=== PATIENT | female | born 1970 | race Hispanic/Latino ===

== ENCOUNTER 2017-09-15 08:50 | Day surgery (SDC) | payer BC ==
[~2017-09-15 08:50] MED LIST: OMNIPAQUE 300 MG/50 ML (CATH LAB) IV ONE; WATER FOR IRRIG STERILE IR ONE
--- NOTE | 2017-09-15 10:16 | Anesthesia Day of Surgery ---
Anesthesia Day of Surgery - Day of Surgery Patient Examined: Yes Patient H&P Reviewed: Yes Patient is NPO: Yes
--- NOTE | 2017-09-15 10:16 | Anesthesia Consultation ---
Anesthesia Consult and Med Hx Date of service: 09/15/17 - Airway Anesthetic Teeth Evaluation: Good ROM Head & Neck: Adequate Mental/Hyoid Distance: Adequate Mallampati Class: Class II Intubation Access Assessment: Probably Good - Pulmonary Exam CTA: Yes - Cardiac Exam Cardiac Exam: RRR - Pre-Operative Health Status ASA Pre-Surgery Classification: ASA2 Proposed Anesthetic Plan: General - Pulmonary Hx Smoking: No Hx Asthma: Yes (rare inhaler use) Hx Sleep Apnea: No (TAB PRE SCREEN NEGATIVE) - Cardiovascular System Hx Hypertension: No - Central Nervous System Hx Back Pain: Yes (FROM STONE) - Gastrointestinal Hx Gastroesophageal Reflux Disease: No (Some recent nausea) - Other Systems Hx Cancer: No - Additional Comments Anesthesia Medical History Comments: H/O PONV
[2017-09-15] MEDS ORDERED: ZOFRAN IV PRN (10:17)
[2017-09-15] MEDS ORDERED: DILAUDID IV NR (10:18)
[2017-09-15] MEDS ORDERED: XYLOCAINE MPF 2% ONE (10:30)
[2017-09-15] MEDS: LACTATED RINGERS 1,000 ML IV SCH ×2 (10:33→12:30)
[2017-09-15] MEDS ORDERED: VERSED IV NR (11:00)
[2017-09-15] MEDS ORDERED: PEPCID IV NR (11:00)
[2017-09-15] MEDS ORDERED: TRANSDERM-SCOP TD NR (11:00)
[2017-09-15] MEDS ORDERED: ZOFRAN IV NR (11:00)
[2017-09-15] MEDS ORDERED: ANCEF/STERILE WATER 2 GM/20 ML IV NR (12:00)
[2017-09-15] MEDS ORDERED: DIPRIVAN 10 MG/ML IV ONE (15:03)
[2017-09-15] MEDS ORDERED: SUBLIMAZE ONE (15:03)
[2017-09-15] MEDS ORDERED: DECADRON ONE (15:44)
[2017-09-15] MEDS ORDERED: ZOFRAN ONE (15:44)
--- NOTE | 2017-09-15 16:16 | Short Stay Summary ---
Short Stay Documentation Date of service: 09/15/17 - History H&P: obtained from office - Allergies and Medications Current Medications: Allergies Sulfa (Sulfonamide Antibiotics) Allergy (Verified 09/15/17 10:09) hives and wheezing codeine Adverse Reaction (Verified 09/15/17 10:09) Vomiting hydrocodone Adverse Reaction (Verified 09/15/17 10:09) Vomiting oxycodone Adverse Reaction (Verified 09/15/17 10:09) Vomiting Home Medications Medication Instructions Recorded Confirmed Last Taken Type Cefuroxime [Ceftin] 500 mg PO Q12H 09/13/17 09/15/17 09/14/17 19:00 History Cetirizine HCl [ZyrTEC] 10 mg PO DAILY 09/13/17 09/15/17 09/15/17 06:45 History HYDROmorphone [Dilaudid] 2 mg PO Q6HR PRN 09/13/17 09/15/17 09/14/17 20:45 History Montelukast [Singulair] 10 mg PO QPM 09/13/17 09/15/17 09/15/17 06:45 History Promethazine [Phenergan TAB] 25 mg PO Q6HR PRN 09/13/17 09/15/17 09/14/17 History Tamsulosin [Flomax] 0.4 mg PO QDAY 09/13/17 09/15/17 09/14/17 History Topiramate [Topamax] 50 mg PO BID 09/13/17 09/15/17 09/15/17 06:45 History Venlafaxine [Effexor] 75 mg PO DAILY 09/13/17 09/15/17 09/15/17 06:45 History Active Medications Cefazolin Sodium (Ancef/Sterile Water 2 Gm/20 Ml) 2 gm IV PREOP NR Stop: 09/15/17 23:59 Famotidine (Pepcid) 20 mg IV PREOP NR Stop: 09/15/17 23:59 Last Admin: 09/15/17 10:36 Dose: 20 mg Hydromorphone HCl (Dilaudid) 0.5 mg IV ONCE NR Stop: 09/15/17 18:00 Lactated Ringer's (Lactated Ringers) 1,000 mls @ 100 mls/hr IV DIRECT SHADE Last Admin: 09/15/17 12:30 Dose: 100 mls/hr Midazolam HCl (Versed) 2 mg IV PREOP NR Stop: 09/15/17 23:59 Last Admin: 09/15/17 11:03 Dose: 2 mg Ondansetron HCl (Zofran) 4 mg IV PREOP NR Stop: 09/15/17 23:59 Last Admin: 09/15/17 10:25 Dose: 4 mg Ondansetron HCl (Zofran) 4 mg IV ONCE PRN PRN Reason: Nausea And Vomiting Stop: 09/15/17 23:59 Scopolamine (Transderm-Scop) 1 each TD PREOP NR Stop: 09/18/17 10:59 Last Admin: 09/15/17 11:05 Dose: 1 each - Brief post op/procedure progress note Date of procedure: 09/15/17 Pre-op diagnosis: right uret stone total 17mm (10 and 6mm) Post-op diagnosis: same Procedure: right uret eswl, right uret stent 6x26 Findings: distal migration over pelvis Surgeon: SHARI MCELROY Estimated blood loss: minimal Pathology: none Condition: stable - Hospital course Hospital course: [email or web address] - Disposition Condition at discharge: Good Disposition: DC-01 TO HOME OR SELFCARE Short Stay Discharge Plan Activity: advance as tolerated Diet: advance as tolerated Follow up with: SHARI MCELROY MD [Staff Physician] - 7 Days Forms: Outpatient Surgery DC Inst.
--- NOTE | 2017-09-15 17:13 | Post Anesthesia Evaluation ---
- Post Anesthesia Evaluation Patient Participated: Yes Airway Patent: Yes Stable Respiratory Function: Yes Temp > 96.8F: Yes Pain Manageable: Yes Adequeate Hydration: Yes Anesthesia Complications: No
--- NOTE | 2017-09-15 17:13 | Post Anesthesia Evaluation ---
- Post Anesthesia Evaluation Patient Participated: Yes Airway Patent: Yes Stable Respiratory Function: Yes Temp > 96.8F: Yes Pain Manageable: Yes Adequeate Hydration: Yes Anesthesia Complications: No
[2017-09-15 17:18] VITALS: BP 152/92
--- NOTE | 2017-10-14 09:59 | Operative Report ---
PREOPERATIVE DIAGNOSIS: Right ureteral 17 mm total stone burden proximal, that is a 10 and 6 mm stone. POSTOPERATIVE DIAGNOSIS: Right ureteral 17 mm total stone, burden proximal, that is a 10 and 6 mm stone. PROCEDURE: Right ureteral ESWL and right ureteral stent placement 6 x 26 double-J. FINDINGS: Some distal migration towards the pelvis, some distal migration heading distally from the proximal to the mid ureter. SURGEON: Rufino Hernandez M.D. ESTIMATED BLOOD LOSS: Minimal. PATHOLOGY: None. CONDITION: Stable. COMPLICATIONS: None. CLINICAL INDICATIONS: Counseled RCBA, antibiotics, SCDs. The patient's CT report said there was a 5 mm stone. We have reviewed this and discussed with the radiologist. This is actually a 10 mm and 6 mm, total 16 mm stone burden. The original CT report is wrong. At this point, the patient was counseled. She was counseled on the extensive nature of this procedure. She has had difficulties with her previous urologists with her previous treatments. She stated by history some problem, we counseled her that likely if she is prone to these problems, that may be at high risk for this and option for a second opinion. She wanted to proceed understanding the staged procedure, difficulty and size of the procedure stone compared to her previous smaller stones. DESCRIPTION OF PROCEDURE: The patient transferred to OR suite, antibiotics, SCDs, supine position, anesthesia, dorsal lithotomy, prepped and draped in standard fashion. A 22-Telugu scope passed. Pancystoscopy, no tumors. Right Glidewire passed up to the right renal pelvis under fluoroscopic visualization. A 6 Telugu double-J stent was passed over the wire under direct and fluoroscopic nice proximal and distal-J. It did appear that the stone was likely more distal. This was then targeted with a shockwave. Total of 2500 shocks at a maximum 6.0 kilovolts were delivered with intermittent repositioning done as necessary. At the end of the procedure, there was some mild decrease density, but difficult to assess with stent and stone. At this point, the patient awakened and transferred to PACU in good and stable condition. This was a staged procedure. Given the size of the stone, expected that she would likely need additional procedures and especially given her past history. PLAN: Stage for future possible additional ESWL or ureteroscopy and future stent removal. JOB# [id number] ATS/NTS
== END 2017-09-15 08:51 | disposition home or self-care (01) ==
LOC: OR 08:50
PROVIDERS: ATTEND Urology
DX: N20.1 Calculus of ureter (principal); I10 Essential (primary) hypertension; J45.909 Unspecified asthma, uncomplicated; Z79.899 Other long term (current) drug therapy; Z88.5 Allergy status to narcotic agent; Z88.2 Allergy status to sulfonamides
CPT/HCPCS: 36415; 50590; 52332; 84703; A4217; C1758; C1769; C2617; J1100; J2250; J2405; J2704; J3010; J7120; Q9967

== ENCOUNTER 2017-09-28 08:51 | Day surgery (SDC) | payer BC ==
--- NOTE | 2017-09-28 11:15 | Anesthesia Consultation ---
Anesthesia Consult and Med Hx Date of service: 09/28/17 - Airway Anesthetic Teeth Evaluation: Good ROM Head & Neck: Adequate Mental/Hyoid Distance: Adequate Mallampati Class: Class II Intubation Access Assessment: Probably Good - Pulmonary Exam CTA: Yes - Cardiac Exam Cardiac Exam: RRR - Pre-Operative Health Status ASA Pre-Surgery Classification: ASA2 Proposed Anesthetic Plan: General - Pulmonary Hx Smoking: No Hx Asthma: Yes (rare inhaler use) Hx Sleep Apnea: No (TAB PRE SCREEN NEGATIVE) - Cardiovascular System Hx Hypertension: No - Central Nervous System Hx Back Pain: Yes (FROM STONE) - Gastrointestinal Hx Gastroesophageal Reflux Disease: No (Some recent nausea) - Other Systems Hx Cancer: No
--- NOTE | 2017-09-28 11:16 | Anesthesia Day of Surgery ---
Anesthesia Day of Surgery - Day of Surgery Patient Examined: Yes Patient H&P Reviewed: Yes Patient is NPO: Yes
[2017-09-28] MEDS ORDERED: XYLOCAINE MPF 2% ONE (11:41)
[2017-09-28] MEDS ORDERED: DIPRIVAN 10 MG/ML IV ONE (11:42)
[2017-09-28] MEDS ORDERED: SUBLIMAZE ONE (11:42)
[2017-09-28] MEDS ORDERED: ZOFRAN IV NR (12:00)
[2017-09-28] MEDS ORDERED: PEPCID PO NR (12:00)
[2017-09-28] MEDS ORDERED: ANCEF/STERILE WATER 2 GM/20 ML IV NR (12:00)
[2017-09-28] MEDS ORDERED: VERSED IV NR (12:00)
[2017-09-28] MEDS ORDERED: LACTATED RINGERS 1,000 ML IV SCH (12:00)
[2017-09-28] MEDS ORDERED: MORPHINE IV PRN (12:00)
[2017-09-28] MEDS ORDERED: PERCOCET 5/325 PO PRN (12:00)
[2017-09-28] MEDS ORDERED: TRANSDERM-SCOP TD NR (12:00)
[2017-09-28] MEDS ORDERED: NEO SYNEPHRINE/NS Syringe(OR USE) IV ONE (13:05)
[2017-09-28] MEDS ORDERED: DECADRON ONE (13:12)
[2017-09-28] MEDS ORDERED: DILAUDID ONE (13:48)
[2017-09-28] MEDS ORDERED: DILAUDID IV PRN (13:49)
--- NOTE | 2017-09-28 13:57 | Post Anesthesia Evaluation ---
- Post Anesthesia Evaluation Patient Participated: Yes Airway Patent: Yes Stable Respiratory Function: Yes Temp > 96.8F: Yes Pain Manageable: Yes Adequeate Hydration: Yes Anesthesia Complications: No
[2017-09-28] MEDS ORDERED: REGLAN IV ONE (15:00)
[2017-09-28] MEDS ORDERED: PHENERGAN PO ONE (17:00)
[2017-09-28 17:36] VITALS: BP 121/76
--- NOTE | 2017-09-29 07:57 | Fluoroscopy Report ---
Retrograde pyelogram: Right ureteral calculus. An internal stent is present on the initial images. There is a questionable density in the right ureter adjacent to the stent in the lower sacrum region. A ureteroscope was placed. The calculus appears to lie adjacent to the wire. On the final images there is no calculus noted however there is faint opacification of a dilated intrarenal collecting system. An internal stent was left in place. By history a calculus was lasered and removed.
--- NOTE | 2017-10-13 16:13 | Operative Report ---
PREOPERATIVE DIAGNOSES: Right ureteral stone, 16 mm combined 2 stones, one approximately 10 and one approximately 5 to 6 mm. POSTOPERATIVE DIAGNOSES: Right ureteral stone, 16 mm combined 2 stones, one approximately 10 and one approximately 5 to 6 mm. PROCEDURE: Right ureteral stent removal and replacement, right ureteroscopy, holmium laser fragmentation of stone, stone basket extraction, stent replacement and retrograde pyelogram. SURGEON: Rufino Hernandez M.D. ANESTHESIA: General. SPECIMENS: Stone. ESTIMATED BLOOD LOSS: Minimal. COMPLICATIONS: None. BLOOD ADMINISTRATION: None. IMPLANTS: Stent. CLINICAL INDICATIONS: Counseled RCBA, antibiotics, SCDs. The patient had a proximal stone that was treated with ESWL. This stone appears to be distal and was counseled on the staged procedure given size of the stone and follow up KUB only minimal fragmentation. DESCRIPTION OF PROCEDURE: The patient was transferred to OR suite in supine position, anesthesia, dorsal lithotomy, prepped and draped in standard fashion. A 22-Maori scope passed. Stent visualized. Glidewire passed adjacent to this up to the right renal pelvis, stent grasped, pulled out intact. Rigid ureteroscope passed up to the stone was identified, holmium laser passed. We began fragmentation of the stone, this was very tedious due to the very large size of the stone. The smaller pieces were fragmented into smaller and smaller pieces. Triceps grasper was sequentially used to remove these pieces. Scope was then eventually passed to the proximal ureter with no significant large residual stones identified. Scope withdrawn, wire backloaded on cystoscope. A 6 Maori double-J stent was passed over the wire under direct and fluoroscopic visualization. When the wire and string was removed, nice proximal J and nice distal J, bladder drained. The patient awakened and transferred to PACU in good and stable condition. This was staged for future stent removal. JOB# [id number] ATS/NTS
== END 2017-09-28 16:48 | disposition home or self-care (01) ==
LOC: OR 08:51
PROVIDERS: ATTEND Urology
DX: N20.2 Calculus of kidney with calculus of ureter (principal); J45.909 Unspecified asthma, uncomplicated; I10 Essential (primary) hypertension; G43.909 Migraine, unspecified, not intractable, without status migrainosus; Z79.899 Other long term (current) drug therapy; Z88.5 Allergy status to narcotic agent; Z88.2 Allergy status to sulfonamides; Z91.048 Other nonmedicinal substance allergy status; Z88.8 Allergy status to other drugs, medicaments and biological substances
CPT/HCPCS: 36415; 52332; 52353; 74420; 81025; 82365; C1758; C1769; C2617; J0690; J1100; J1170; J2250; J2370; J2405; J2704; J2765; J3010; J7120; Q9967; Q0169